=== PATIENT | female | born 1990 | race Caucasian/White ===

== ENCOUNTER 2016-09-07 12:39 | Emergency (ER) | payer SELFPAY ==
[2016-09-07] MEDS ORDERED: LORazepam 2 MG/1 ML VIAL IVP ONE (12:46)
[2016-09-07] MEDS ORDERED: ONDANSETRON 4 MG/2 ML VIAL IVP ONE (12:46)
[2016-09-07] MEDS ORDERED: NITROGLYCERIN 0.4 MG SL TAB (BOTTLE OF 3) SL ONE (12:46)
[2016-09-07] MEDS ORDERED: MORPHINE SULFATE 2 MG/1 ML IVP ONE (12:46)
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
[2016-09-07] MEDS ORDERED: Sodium Chloride 0.9% 1,000 ML ONE (12:57)
[2016-09-07 13:17] LABS: BASOPHILS # (AUTO) 0.04 10*3/UL; BASOPHILS % (AUTO) 0.4 % (0-1); EOSINOPHILS # (AUTO) 0.12 10*3/UL; EOSINOPHILS % (AUTO) 1.3 % (0-8); HEMOGLOBIN 14.4 g/dL (12.0-16.0); LYMPHOCYTES # (AUTO) 1.94 10*3/uL; MEAN CORPUSCULAR HEMOGLOBIN 30.7 PG (27-31); MEAN CORPUSCULAR HGB CONC 34.3 g/dL (33-37); MEAN CORPUSCULAR VOLUME 89.6 FL (81-99); MEAN PLATELET VOLUME 8.9 FL (7.4-12.2); MONOCYTES # (AUTO) 0.41 10*3/UL (0.3-0.8); MONOCYTES % (AUTO) 4.3 % (5-15); NEUTROPHILS # (AUTO) 6.98 10*3/UL; NEUTROPHILS % (AUTO) 73.4 % (50-80); RED BLOOD COUNT 4.69 10^6/uL (4.20-5.40)
[2016-09-07 13:18] LABS: PLATELET MORPHOLOGY COMMENT NORMAL MORPHOLOGY (NORM); RBC MORPHOLOGY COMMENT NORMAL MORPHOLOGY (NORM); WBC MORPHOLOGY COMMENT NORMAL MORPHOLOGY (NORM)
[2016-09-07 13:24] LABS: BLOOD UREA NITROGEN 17 mg/dL (7-22); BUN/CREATININE RATIO 21.25 (6-20); CALCIUM 9.7 mg/dL (8.7-10.7); EST GLOMERULAR FILTRATION > 60 (>60 ml/min/1.73m(2)); MAGNESIUM 1.8 mg/dL (1.6-2.4); SERUM ALBUMIN 4.2 g/dL (3.5-4.8)
[2016-09-07 13:33] LABS: CREATINE KINASE MB 0.43 NG/ML (0.00-5.00)
[2016-09-07] MEDS ORDERED: Sodium Chloride 0.9% 1,000 ML PRIMARY IV ONE (13:33)
[2016-09-07 13:35] LABS: TROPONIN I < 0.012 ng/mL (< 0.040)
--- NOTE | 2016-09-07 13:37 | DI ---
AP CHEST X-RAY, 09/07/2016 12:46 PM : Clinical History: Chest pain Previous Exam: January 17, 2007 There is no acute soft tissue or bony abnormality. Heart size is normal. Lungs are clear. Mediastinal structures are normal. There are no pulmonary nodules. Overlying EKG leads are seen. Reading: Normal chest x-ray.
[2016-09-07 13:50] LABS: FREE T4 (FREE THYROXINE) 1.19 ng/dL (0.93-1.71)
[2016-09-07 14:41] VITALS: RESP 16; TEMP 97.7
--- NOTE | 2016-09-08 05:12 | EKG ---
[address] [address] Measurements Intervals [place] Rate: 104 P: 78 NM: 143 QRS: 98 QRSD: 86 T: 101 QT: 332 QTc: 393 Interpretive Statements SINUS TACHYCARDIA BORDERLINE RIGHT AXIS DEVIATION [QRS AXIS > 90] NONSPECIFIC ST & T-WAVE ABNORMALITY ABNORMAL RHYTHM ECG INTERPRETATION BASED ON A DEFAULT AGE OF 40 YEARS Compared to ECG 03/24/2015 15:31:24 Sinus rhythm no longer present T-wave abnormality still present Electronically Signed On 09-08-16 13:22:26 MDT by Miki Ball MD [email or web address]
== END 2016-09-07 15:20 | disposition home or self-care (01) ==
LOC: ER 12:39
DX: R07.9 Chest pain, unspecified (principal); R06.02 Shortness of breath; M79.622 Pain in left upper arm
CPT/HCPCS: 71010; 80053; 82553; 83735; 84439; 84443; 84484; 84703; 85025; 85379; 86140; 93005; 93010; 96374; 96375; 99284; J2060; J2270; J2405; J7030

== ENCOUNTER → 2016-09-09 | Outpatient (CLI) | payer SELFPAY ==
[2016-09-09 10:13] LABS: C-REACTIVE PROTEIN 1.5 mg/dL (0.0-0.9); CHOL/HDL RATIO 3.26 RATIO (0-4.0)
== END ==
LOC: LAB 09:44
PROVIDERS: ATTEND Family Medicine
DX: R00.2 Palpitations (principal); R42 Dizziness and giddiness; R79.82 Elevated C-reactive protein (CRP); Z82.49 Family history of ischemic heart disease and other diseases of the circulatory system
CPT/HCPCS: 36415; 80061; 82607; 82728; 83540; 83550; 86140

== ENCOUNTER → 2016-09-13 | Outpatient (CLI) | payer SELFPAY ==
--- NOTE | 2016-09-13 15:49 | EKG ---
[address] [address] Measurements Intervals [place] Rate: 58 P: 61 MT: 149 QRS: 85 QRSD: 89 T: 23 QT: 430 QTc: 427 Interpretive Statements SINUS RHYTHM Compared to ECG 09/07/2016 12:45:07 Sinus tachycardia no longer present T-wave abnormality no longer present Electronically Signed On 09-13-16 16:27:55 MDT by Zackary Rivers [id number]
== END ==
LOC: MOB EKG 15:31
PROVIDERS: ATTEND Specialist
DX: R00.2 Palpitations (principal); R07.9 Chest pain, unspecified; I49.3 Ventricular premature depolarization
CPT/HCPCS: 93005; 93010

== ENCOUNTER → 2016-10-31 | Outpatient (CLI) | payer SELFPAY ==
[2016-11-02 07:16] LABS: PARASITIC EXAM FIN 1615 (())
== END ==
LOC: LAB 13:01
DX: B82.9 Intestinal parasitism, unspecified (principal)
CPT/HCPCS: 87177; 87209

== ENCOUNTER 2016-11-12 23:42 | Emergency (ER) | payer SELFPAY ==
[2016-11-12 23:58] VITALS: RESP 18; TEMP 97.5
[2016-11-13] MEDS ORDERED: Sodium Chloride 0.9% 1,000 ML PRIMARY IV ONE (00:05)
[2016-11-13] MEDS ORDERED: Prochlorperazine Edisylate Inj 5 MG in Sodium Chloride 0.9% 500 ML IV ONE (00:05)
[2016-11-13] MEDS ORDERED: Magnesium Sulfate 2gm (Premix) 2 GM in Premix 1 BAG IV ONE (00:05)
[2016-11-13] MEDS ORDERED: diphenhydrAMINE 50 MG/1 ML VIAL IVP ONE (00:05)
[2016-11-13] MEDS ORDERED: DEXAMETHASONE PF 10 MG/1 ML VIAL IV ONE (00:05)
[2016-11-13] MEDS ORDERED: KETOROLAC 15 MG/1 ML VIAL IVP ONE (00:05)
--- NOTE | 2016-11-13 00:13 | PDOC ---
Headache HPI - General Chief Complaint: Headache Stated Complaint: HEADACHE Date Seen by Provider: 11/13/16 Time Seen by Provider: 00:09 Source: POSITIVE: Patient Exam Limitations: POSITIVE: No limitations Nurse's Notes Reviewed & Considered: Yes - History of Present Illness Initial Comments: This 26-year-old female comes in tonight complaining of headache. Shana states that she had migraine headaches as a child that ultimately resolved. She now has return of her migraine headaches for the last 2 months and they appear to be associated with the beginning of her menstruation. Her headache is global, worse in the occiput. She has photophobia, increased pain with noise , increased pain with movement. She has associated nausea and vomiting, denies any diarrhea, no hematuria or dysuria, no chest pain no shortness of breath, no cough. Her headache began at approximately 1400 hrs. today. Body Location Affected: REPORTS: Head Timing: REPORTS: Abrupt Duration: 4-6 hours Severity: Severe Quality: REPORTS: "Pain", Stabbing, Throbbing Associated Symptoms: REPORTS: Nausea, Vomiting Exacerbated by: REPORTS: Light, Noise, Movement, Position Any Prior Injuries Related to Current Complaint?: No - Patient Home Medications Home Medications: Home Medications Acetaminophen with Codeine [Tylenol With Codeine #4 Tablet] 1 tab PO Q4-6H #45 tab 10/26/16 Ondansetron HCl [Zofran] 4 mg PO Q8H PRN #45 tab 10/26/16 - Patient Allergies Allergies/Adverse Reactions: Allergies Allergy/AdvReac Type Severity Reaction Status Date / Time No Known Allergies Allergy Verified 11/12/16 23:47 Past Medical History - heen HEENT History: Denies History Cardiovascular History: Other (please comment) Additional Cardiovasular History: PALPITATIONS Respiratory History: Denies History Gastrointestinal History: Gallbladder Disease Additional Gastrointestinal History: Gall Bladder disease Genitourinary History: Other (please comment) Additional Genitourinary History: UTI's with Endocrine History: Gestational Diabetes Additional Endocrine History: hs of gestational DM Musculoskeletal History: Denies History Prosthesis or Implant: No Neurological History: Migraines Blood Disorders: Denies History Psychiatric History: Depression History of Sexually Transmitted Diseases: No Female Reproductive History: Other (please comment) Additional Female Reproductive History: TUBAL LIGATION Obstetrical History: Denies History Cancer History: Denies History In Past Year Been Physically Harmed or Verbally Threatened: No History of MDRO: No History of Other Communicable Diseases: No Tobacco Use: Current Every Day Smoker Alcohol Use: None Substance Use Type: None Previous Surgical History: No Type / Date of Surgery: AB 12/21/12. TUBAL LIGATION Anesthesia Reactions: No Significant Family History: No pertinent family hx ROS Constitution: REPORTS: Denies Symptoms Cardiovascular: REPORTS: Denies Cardiac Symptoms Respiratory: REPORTS: Denies Resp Symptoms Neurological: REPORTS: Headache Gastrointestinal: REPORTS: Nausea, Vomitting Endocrine: REPORTS: Denies Symptoms Musculoskeletal: REPORTS: Denies MS Symptoms Genitourinary: REPORTS: Denies Symptoms Eyes: REPORTS: Denies Symptoms ENT: REPORTS: Denies Symptoms Skin: REPORTS: Denies Skin Symptoms Lympathic: REPORTS: Denies Lympathic Symptoms Immunologic: POSITIVE: Denies Symptoms Psychiatric: POSITIVE: Denies Psych Symptoms Headache Exam - General Appearance General Appearance: POSITIVE: Alert, Cooperative, No Evidence of Trauma, Moderate Distress - HEENT Head / Face: POSITIVE: Atraumatic, Normal Inspection, No Facial Swelling Eyes: POSITIVE: Inspection Normal, PERRL, EOM's Intact, Eyelids Uninjured, Conjunctivae Uninjured, No Nystagmus, No Globe Trauma, Sclera Normal Ears: POSITIVE: Ears Normal Inspection, Auricle Normal Nose: POSITIVE: Inspection Normal, No Apparent Trauma, Nares Normal, No CSF Leak Oropharynx: POSITIVE: External Inspection Nml, Pharynx Inspect. Nml, Airway Intact, Voice Normal, Moist Mucous Membranes, No Oral Injury, Lips Normal, Gums Normal, No Drooling, No Thrush, Normal Gag Reflex Dental: POSITIVE: No Dental Injury - Pupil Size Pupil Size: 5 mm: Bilateral - Neck Neck: POSITIVE: Normal Inspection, Supple - Respiratory / CVS Respiratory / CVS: POSITIVE: Chest Non-Tender, No Respiratory Distress, Heart Sounds Normal, Regular Rate/Rhythm, Breath Sounds Normal Peripheral Pulses: Radial (R): 4+ - Abdomen Abdomen: Soft: (All Quadrants), Normal Bowel Sounds: (All Quadrants), Denies Tenderness: (All Quadrants), No Splenomegaly: (All Quadrants), No Hepatomegaly: (All Quadrants), No Guarding: (All Quadrants), No Rebound: (All Quadrants), No Palpable Pulse: (All Quadrants), No Palpabale Mass: (All Quadrants), No Distention: (All Quadrants), No Rigidity: (All Quadrants) - Skin Skin: POSITIVE: Intact, Normal Palpation - Extremities Extremity: Non-Tender: (All Extremities), Normal ROM: (All Extremities), Normal Inspection: (All Extremities), Pelvis Stable: (All Extremities) - Neuro / Psych Higher Functions: POSITIVE: Alert, Oriented x3, Normal Speech, Mood Appropriate , Affect Appropriate Cranial Nerves: POSITIVE: Normal As Tested, No Evidence of Acute CVA Cerebellar: POSITIVE: Normal As Tested Sensorimotor: POSITIVE: No Motor Deficits, No Sensory Deficits, Reflexes Normal Reflexes: Patellar (R): 4+, Patellar (L): 4+, Radial (R): 4+, Radial (L): 4+ Headache Progress - Results Reviewed by me Xrays/CTs/US Reviewed by me: Yes Discussed with Radiologist: Yes Lab Results Reviewed: Yes Lab Results:: Laboratory Results 11/13/16 Range/Units 00:34 WBC 8.81 (4.8-10.8) 10^3/uL RBC 4.46 (4.20-5.40) 10^6/uL Hgb 13.9 (12.0-16.0) g/dL Hct 40.1 (37.0-47.0) % MCV 89.9 (81-99) FL MCH 31.2 H (27-31) PG MCHC 34.7 (33-37) g/dL RDW Std Deviation 43.1 (39-50) fL RDW Coeff of Gisela 13.2 (11.5-14.5) % Plt Count 233 (140-350) 10*3/uL MPV 8.9 (7.4-12.2) FL Immature Gran % (Auto) 0.2 (0-5) % Neut % (Auto) 67.6 (50-80) % Lymph % (Auto) 26.1 (10-50) % [place] % (Auto) 4.5 L (5-15) % Eos % (Auto) 1.0 (0-8) % Baso % (Auto) 0.6 (0-1) % Immature Gran # (Auto) 0.02 10*3/UL Neut # (Auto) 5.95 10*3/UL Lymph # (Auto) 2.30 10*3/uL [place] # (Auto) 0.40 (0.3-0.8) 10*3/UL Eos # (Auto) 0.09 10*3/UL Baso # (Auto) 0.05 10*3/UL WBC Morphology Comment Normal morphology (NORM) Plt Morphology Comment Normal morphology (NORM) RBC Morph Comment Normal morphology (NORM) Sodium 138 (135-145) meq/L Potassium 3.7 L (3.8-5.2) meq/L Chloride 106 (98-112) meq/L Carbon Dioxide 22 L (23-33) meq/L Anion Gap 10 (5-20) BUN 21 (7-22) mg/dL Creatinine 0.9 (0.50-1.20) mg/dL Estimated GFR > 60 (>60 ml/min/1.73m(2)) BUN/Creatinine Ratio 23.33 H (6-20) Glucose 110 (78-110) mg/dL Calculated Osmolality 289.0 (267-292) mOsm/kg Calcium 9.4 (8.7-10.7) mg/dL Magnesium 2.0 (1.6-2.4) mg/dL Total Bilirubin 0.5 (0.3-1.2) mg/dL AST 18 (8-39) IU/L ALT 28 (9-52) IU/L Alkaline Phosphatase 41 (38-126) IU/L C-Reactive Protein 0.6 (0.0-0.9) mg/dL Total Protein 6.9 (6.1-8.0) g/dL Albumin 4.4 (3.5-4.8) g/dL Globulin 2.6 (2.50-4.10) g/dL Albumin/Globulin Ratio 1.60 (1.3-2.0) mg/g - Patient's Progress Pain Medication Addressed: POSITIVE: Yes Re-Examine Time:: 01:04 Status: POSITIVE: Improved MDM / ED Course: Patient was examined, an IV started, blood drawn and sent to the lab for studies , radiographic examinations were obtained. Patient received an IV with normal saline, Toradol, magnesium, Benadryl, Compazine, and dexamethasone. After she was given these medications she went to sleep. Findings: CBC and comprehensive metabolic panel are unremarkable. CT scan of her head shows no acute intracranial abnormalities. Assessment: Migraine headache area Plan: Discharge home, follow-up with primary care physician calling Monday morning for follow-up appointment. - Consult Counseled: POSITIVE: Patient, RE: Lab Results, RE: Radiology Results, RE: DX, RE : Need for F/U Patient Care Time - Estimated PCT Patient Care Time (In Minutes): 30 Vital Signs - Recent Vital Signs Vital Signs: Vital Signs (Last 8 hours) Temp Pulse Resp BP Pulse Ox 11/12/16 23:43 97.5 F 85 18 115/76 97 - VS Reviewed Vital Signs Reviewed: Yes Discharge Clinical Impression: Migraine Discharge Disposition: Discharged to Home Condition: Good Patient Instructions Given at Discharge: Migraine Headache (ED)
[2016-11-13 00:36] LABS: BASOPHILS # (AUTO) 0.05 10*3/UL; BASOPHILS % (AUTO) 0.6 % (0-1); EOSINOPHILS # (AUTO) 0.09 10*3/UL; HEMATOCRIT 40.1 % (37.0-47.0); HEMOGLOBIN 13.9 g/dL (12.0-16.0); MEAN CORPUSCULAR HEMOGLOBIN 31.2 PG (27-31); MEAN CORPUSCULAR HGB CONC 34.7 g/dL (33-37); MEAN CORPUSCULAR VOLUME 89.9 FL (81-99); MEAN PLATELET VOLUME 8.9 FL (7.4-12.2); MONOCYTES % (AUTO) 4.5 % (5-15); NEUTROPHILS # (AUTO) 5.95 10*3/UL; NEUTROPHILS % (AUTO) 67.6 % (50-80); RED BLOOD COUNT 4.46 10^6/uL (4.20-5.40)
[2016-11-13 00:37] LABS: PLATELET MORPHOLOGY COMMENT NORMAL MORPHOLOGY (NORM); RBC MORPHOLOGY COMMENT NORMAL MORPHOLOGY (NORM); WBC MORPHOLOGY COMMENT NORMAL MORPHOLOGY (NORM)
--- NOTE | 2016-11-13 00:42 | DI ---
HISTORY: Migraine since 1400 hours with nausea and vomiting. COMPARISON: None available. TECHNIQUE: CT of the head was performed without contrast. Only axial images were submitted for inte rpretation. FINDINGS: There is no evidence of acute intracranial hemorrhage, mass effect, or large vessel infar ction. The ventricles, sulci, and lockett-white differentiation are within normal limits for the patient s age. The posterior fossa structures are unremarkable. No displaced calvarial fracture is seen. The paranasal sinuses and mastoids air cells are well aerate d. The imaged orbits are grossly unremarkable. IMPRESSION: 1. No acute intracranial abnormality. No other significant findings.
[2016-11-13 00:48] LABS: BLOOD UREA NITROGEN 21 mg/dL (7-22); BUN/CREATININE RATIO 23.33 (6-20); C-REACTIVE PROTEIN 0.6 mg/dL (0.0-0.9); CALCIUM 9.4 mg/dL (8.7-10.7); EST GLOMERULAR FILTRATION > 60 (>60 ml/min/1.73m(2)); SERUM ALBUMIN 4.4 g/dL (3.5-4.8)
== END 2016-11-13 01:15 | disposition home or self-care (01) ==
LOC: ER 23:42
DX: G43.009 Migraine without aura, not intractable, without status migrainosus (principal); R11.2 Nausea with vomiting, unspecified; H53.143 Visual discomfort, bilateral; Z72.0 Tobacco use
CPT/HCPCS: 70450; 80053; 83735; 84443; 85025; 86140; 96365; 96375; 99282; 99283; J0780; J1100; J1200; J1885; J3475; J7030; J7040